=== PATIENT | female | born 1945 | race Caucasian/White ===

== ENCOUNTER 2023-03-23 08:59 | Outpatient (AMB) | payer OTHER, SELFPAY ==
--- NOTE | 2023-03-23 09:05 | A.SPINEOV_ITS ---
Intake Intake Visit Reasons: pinched nerve in the spine Intake Note: Mrs. Holder is here today c/o low back pain. MRI @ [facility]/brought disc. Development Architect Required: No Assessment & Plan Assessment & Plan (1) Spinal stenosis: Code(s): M48.00 - Spinal stenosis, site unspecified Plan HPI: Catie is a pleasant 77-year-old female who comes in today as a self- referral for 15 years of low back pain with radiation into her bilateral legs that has progressively gotten worse over the years. It is now to the point where it affects her quality of life and activities of daily living. She states that her pain originates in her low back, radiates down the lateral side of her thighs, wraps over the top of her knees down to her ankles and terminates before her feet. She reports that her pain is worse with standing/walking/extending her back, and is relieved by sitting and bending forward. She currently ambulates with a walker and leans over it for support. She reports that he has tried many nssk-anw-qfkztxe remedies including Tylenol, ibuprofen, dsxy-ale-laqllgw pain patches, ice, heat, and pain relief creams/ointments without significant relief. She last went to physical therapy 2 years ago and felt as though it was not beneficial for her. She has tried a recent at home exercise program and feels that it produced too much pain for her to continue. She has tried cortisone injections twice; once with relief 10 years ago that was temporary and fleeting, and again 5 years ago which she reports was too painful for her to continue with. Of note she is currently established at [facility] neurosurgery who recommended she follow-up with physiatry/pain management for her low back related concerns. For this reason she reports she is here for a second opinion / evaluation. PMH: Hypertension, osteoarthritis, diverticulosis, polymyalgia rheumatica, fibromyalgia, neuropathy of bilateral lower extremities, colostomy placement 2020, large left lateral non-incarcerated hernia. Social hx: Patient does not smoke, reports no substance use. Medications: Lisinopril, citalopram, gabapentin, myrbetriq. Allergies: NKDA. Physical exam: The patient has 4/5 strength with knee extension/knee flexion/hip flexion. She has 5/5 strength elsewhere including dorsiflexion, plantar flexion, and EHL. She has faint (1+ at best) reflexes of her bilateral lower extremities. Reflexes intact elsewhere. She reports loss of sensation/numbness over lateral thigh and anterior tibialis. Sensation grossly intact elsewhere. Pain elicited to direct palpation of lumbar spine. She is able to ambulate with the assistance of a walker but has difficulty walking on her own. She is able to rise from a seated position with the assistance of a chair. (-) straight leg raise bilateral, (-) clonus, (-) Sanchez's. Imaging review: MRI of Lumbar spine completed at [facility] in June 2022 shows shows disc degeneration with multilevel lumbar spondylosis and severe central canal stenosis at L3-L4 and L4-L5, with accompanying severe bilateral foraminal stenosis at these levels. Moderate central canal stenosis also noted at L2-3, with only mild bilateral foraminal stenosis. Radiology read also reports a large left lateral abdominal wall hernia. Impression: Scott canales pleasant 77-year-old female comes in today for a 2nd o miguel ángel after being evaluated by [facility] neuro surgery and referred to Pain Management for nonsurgical interventions. She reports significant severe back pain with radiation of symptoms into her bilateral lower extremities in a classic L4/L5 distribution. Her history and physical is classic for severe lumbar spinal stenosis. This is supported by her imaging. She has tried all forms of conservative management without significant symptom relief. She is now to the point where she has trouble completing her ADLs, cannot walk for extended periods of time, and is completely reliant on a walker to ambulate. After being evaluated by Dr. Guerra, he offered her a midline sparing L3-4, L4-5 decompression. She has no cardiac or pulmonary history as far as we know of, but will need clearance from her primary care provider before continuing with surgery. We did note the possibility for a slight spondylolisthesis in the lumbar spine on review of her MRI. Fortunately, dynamic x-rays of the lumbar spine show no instability. Patient was given risk and benefits of surgery including but not limited to infection, hematoma, nerve injury, durotomy, weakness, bowel/bladder injury, persistent pain, as well as the option to continue with conservative treatment and patient wishes to proceed with surgery. She is aware they should stop all NSAIDs 7 days prior to surgery. All questions were answered to the best of our ability. If there is anything about this patients medical history that we have overlooked or concerns you have about us proceeding with surgery we would appreciate any input you can offer. Thank you for allowing us to care for your patient. The total time spent with this visit with this patient was 60 minutes reviewing history, physical exam, MRI imaging review, and implementation of treatment plan or further diagnostic testing. Stephen Guerra MD,PhD [facility] Orders: Orders XR lumbar spine 4V min Today M48.00 - Spinal stenosis, site unspecified Coding Level of Care Code New Pt Level 5 (43803) Diagnoses Spinal stenosis M48.00
== END 2023-03-23 10:00 | disposition home or self-care (01) ==
PROVIDERS: PCP Internal Medicine; Visit Provider Neurological Surgery
DX: M48.00 Spinal stenosis, site unspecified (principal)
CPT/HCPCS: 99205

== ENCOUNTER 2023-03-23 08:59 | Outpatient (REF) | payer OTHER, SELFPAY ==
--- NOTE | ~2023-03-23 | XR_ITS ---
EXAMINATION: XR LUMBOSACRAL SPINE WITH OBLIQUES CLINICAL INFORMATION: Spinal stenosis. COMPARISON: MRI lumbar spine dated 06/19/2022. TECHNIQUE: AP and lateral (neutral, flexion and extension) views of the lumbosacral spine are submitted. FINDINGS: There is bony demineralization. There is a mild lumbar levoscoliosis. At L2-L3, there is moderate disc space narrowing, subchondral and endplate sclerosis and a 4 mm retrolisthesis. At L3-L4, there is marked disc space narrowing and a 5 mm retrolisthesis. There is mild disc space narrowing at L4-L5. No acute fracture or spondylolisthesis is seen. This multi-level lumbar spondylosis and facet arthropathy. The posterior elements are intact. There are aortoiliac atherosclerotic calcifications. XR/XR lumbar spine 4V min IMPRESSION: There is multi-level lumbar degenerative disc disease, spondylosis and facet arthropathy. Degenerative disc disease is most pronounced at L3-L4, where it is marked.
== END 2023-03-23 09:00 | disposition home or self-care (01) ==
LOC: HO.HOSX 08:59
PROVIDERS: Visit Provider Neurological Surgery
DX: M48.00 Spinal stenosis, site unspecified (principal)
CPT/HCPCS: 72110; 99202

== ENCOUNTER 2023-05-26 | Outpatient (REF) | payer OTHER, SELFPAY ==
[2023-05-26 13:25] VITALS: BP 156/74; PULSE 59; RESP 16; O2SAT 97; BMI 54.5
--- NOTE | 2023-05-26 13:41 | P.CONAN_ITS ---
HPI - Anesthesia Eval Consult details Narrative: Pt cx'd self 77yo F for L3-4,L4-5 Midline Sparing Decompression, 06/23/23 No recent illness No CP/SOB with very minimal activity. Walker at home, wheelchair for appointments s/p carpal tunnel 05/25/23 with GA at [facility] 2019 severe septic shock with prolonged intubation. Required HD for 2 months, none further Ostomy in situ. Hernia behind stoma Hx LE DVT in 2019. 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 PMFSH Active Problems Active Problems: All Active Problems (Updated 05/26/23 @ 13:37 by Berta Morse, RN) Spinal stenosis (Acute) Past Medical History Medical History (Updated 05/26/23 @ 13:49 by Berta Morse, DELL) PONV (postoperative nausea and vomiting) Hx of diverticulitis of colon Uses walker Murmur, cardiac Lumbar disc herniation Scoliosis History of renal dialysis Hx of septic shock Severe obesity Pre-diabetes Polymyalgia rheumatica Sleep apnea Nephrolithiasis Moderate aortic insufficiency Mixed incontinence urge and stress Lymphedema Left carpal tunnel syndrome Hemangioma of spleen QUIQUE (generalized anxiety disorder) Obesity Essential hypertension History of DVT of lower extremity Diastolic dysfunction without heart failure Degenerative lumbar spinal stenosis Osteoarthritis Colostomy in place Cervical disc disorder Bilateral cataracts Anemia Family History Family history of problems with anesthesia: Yes (Daughter with post-op delerium) Surgical History Surgical History (Updated 05/26/23 @ 13:16 by Berta Morse, DELL) Hx of right knee surgery S/P carpal tunnel release (05/25/23) History of partial colectomy (~2019) History of right salpingo-oophorectomy History of Problems with Anesthesia: Yes (PONV) Social History Social History Are you a primary memory care director to a significant other at home: No Do you presently have visiting nurse or other home services: Yes ([employer] 15.45 hrs /week) Patient Tobacco Use Status: Never used Tobacco Use of substances other than those prescribed or required for medical reasons: No Have you been hit, kicked, punched, or otherwise hurt by someone within the past year? If so, by whom?: No Are you DNR?: No Advance Directives: No Advance Directives Information Provided: Yes Advance Directives on File: No Recently lost weight without trying: No Nutrition Risks: Surgical patient >75years Meds Allergies Allergy/AdvReac Type Severity Reaction Status Date / Time diclofenac AdvReac Severe nausea, Verified 05/26/23 13:13 bloating meloxicam AdvReac Severe nausea, Verified 05/26/23 13:12 bloating oxycodone [From Percocet] AdvReac Severe Hallucinati Verified 05/26/23 13:12 ons tizanidine AdvReac Severe nausea, Verified 05/26/23 13:12 bloating tramadol AdvReac Intermediate nausea, Verified 05/26/23 13:12 bloating NSAIDS (Non-Steroidal AdvReac advised to Verified 05/26/23 13:06 Anti-Inflamma avoid- R/T kidney function Home Medications Medication Instructions Recorded Confirmed Last Taken Type baclofen 5 mg tablet 5 mg PO TID 05/25/23 05/25/23 Unknown History citalopram 20 mg tablet 20 mg PO DAILY 05/25/23 05/25/23 Unknown History gabapentin 300 mg capsule 300 mg PO BID 05/25/23 05/26/23 Unknown History lisinopril 10 mg tablet 10 mg PO DAILY 05/25/23 05/25/23 Unknown History vibegron 75 mg tablet (Gemtesa) 75 mg PO DAILY 05/26/23 05/26/23 Unknown History Exam Height,Weight and Vital Signs: Height 4 ft 11 in Weight 122.47 kg Last Vital Signs Pulse 59 05/26/23 13:25 Resp 16 05/26/23 13:25 BP 156/74 H 05/26/23 13:25 Pulse Ox 97 05/26/23 13:25 O2 Del Method Room Air 05/26/23 13:25 Airway Mallampati Class: II TM Dist: >3cm Neck ROM: Full Partial: Upper Heart: RRR +M Lungs: CTAB Assessment and Plan Assessment Anesthesia Assessment: Anesthesia Plan Discussed and PAT Visit Final Anesthetic Review Family History of Problems with Anesthesia: Yes (Daughter with post-op delerium) History of Problems with Anesthesia: Yes (PONV)
[2023-05-26 15:18] LABS: Hematocrit 37.9 % (37.0-47.0); Hemoglobin 11.7 g/dl (12.0-16.0); Mean Corpuscular HGB Conc 30.9 g/dl (31.0-35.0); Mean Corpuscular Hemoglobin 25.6 pg (27.0-33.0); Mean Corpuscular Volume 82.9 fL (80.0-98.0); Mean Platelet Volume 10.6 fL (9.4-12.3); Platelet Count 278 X10*3/uL (160-400); Red Blood Count 4.57 X10*6/uL (4.20-5.50); Red Cell Distribution Width 15.2 % (11.0-16.0); White Blood Count 6.5 X10*3/uL (4.8-10.8)
[2023-05-26 15:28] LABS: Anion Gap 12 (12-20); Blood Urea Nitrogen 24 mg/dL (9-16); Calcium 9.5 mg/dL (8.4-10.2); Carbon Dioxide 27 mmol/L (22-29); Chloride 108 mmol/L (96-108); Estimated Glomerular Filt Rate 45; Glucose Random 82 mg/dL (60-115); Sodium 142 mmol/L (135-145)
[2023-05-26 15:33] LABS: B Type Natriuretic Peptide 50 pg/mL (<100)
== END 2023-05-26 00:01 | disposition home or self-care (01) ==
LOC: HO.PAT
PROVIDERS: Nurse Practitioner; PCP Internal Medicine; Visit Provider Neurological Surgery
DX: Z01.818 Encounter for other preprocedural examination (principal)
CPT/HCPCS: 36415; 80048; 83880; 85027